=== PATIENT | female | born 1980 | race American Indian/Alaskan Native ===

== ENCOUNTER 2017-06-26 10:51 | Emergency (ER) | payer SELFPAY ==
[2017-06-26 11:36] VITALS: BP 122/71
--- NOTE | 2017-06-26 15:19 | Emergency Department Report ---
Blank Doc - Documentation Documentation: 36-year-old female with no significant past medical history came in complaining of runny nose, cough, congestion for past 5 days. Pt states her mother has COPD and has been coughing and she feels like she got it from her. Pt is under no acute distress. denies n/v/cp/sob, denies fever, chills P: -flu,strep,cxr
--- NOTE | 2017-06-26 15:48 | Emergency Department Report ---
Minor Respiratory - HPI Chief Complaint: Sore Throat Stated Complaint: BODY PAIN Time Seen by Provider: 06/26/17 15:10 Duration: 5 Days Pain Location: Throat, Nose Severity: mild Minor Respiratory: Yes Rhinorrhea, Yes Sore Throat, Yes Able to Tolerate Fluids , Yes Cough, Yes Sick Contacts, Yes Fever, No Ear Pain, No Hemoptysis, No Chest Pain, No Shortness of Breath Other History: Pt reports URI x 5 days with low grade fever. No SOB. ED Review of Systems ROS: Stated complaint: BODY PAIN Other details as noted in HPI Comment: All other systems reviewed and negative Constitutional: chills, fever Eyes: denies: eye pain, eye discharge, vision change ENT: as per HPI, throat pain, congestion. denies: ear pain Respiratory: cough. denies: shortness of breath, wheezing Cardiovascular: denies: chest pain, palpitations Endocrine: no symptoms reported Gastrointestinal: denies: abdominal pain, nausea, diarrhea Genitourinary: denies: urgency, dysuria, discharge Musculoskeletal: denies: back pain, joint swelling, arthralgia Skin: denies: rash, lesions Neurological: denies: headache, weakness, paresthesias Psychiatric: denies: anxiety, depression Hematological/Lymphatic: denies: easy bleeding, easy bruising ED Past Medical Hx - Past Medical History Additional medical history: BRONCHITIS - Surgical History Past Surgical History?: Yes Additional Surgical History: X1 - Social History Smoking Status: Current Every Day Smoker Substance Use Type: Marijuana - Medications Home Medications: Home Medications Medication Instructions Recorded Confirmed Last Taken Type Doxycycline Hyclate [Vibramycin] 100 mg PO BID #20 capsule 06/26/17 Unknown Rx Fluticasone [Flonase] 2 spray NS QDAY #1 bottle 06/26/17 Unknown Rx Minor Respiratory Exam - Exam General: Vital signs noted. No distress. Alert and acting appropriately. HEENT: Yes Moist Mucous Membranes, Yes Rhinorrhea, No Pharyngeal Erythema, No Pharyngeal Exudates, No Conjuctival Injection, No Frontal Tenderness, No Maxillary Tenderness Ear: Neither TM Bulge, Neither TM Erythema, Neither EAC Pain, Neither EAC Discharge Neck: Yes Supple, No Adenopathy Lungs: Yes Good Air Exchange, Yes Cough, No Wheezes, No Ronchi, No Stridor, No Labored Respirations, No Retractions, No Use of Accessory Muscles, No Other Abnormal Lung Sounds Heart: Yes Regular, No Murmur Abdomen: Yes Normal Bowel Sounds, No Tenderness, No Peritoneal Signs Skin: No Rash, No Edema Neurologic: Alert and oriented, no deficits. Musculoskeletal: Unremarkable. ED Course Vital Signs 06/26/17 11:33 Temperature 99.1 F Pulse Rate 66 Respiratory 17 Rate Blood Pressure 122/71 O2 Sat by Pulse 100 Oximetry - Reevaluation(s) Reevaluation #1: 06/26/17 16:35 Pt stable for d/c. ED Medical Decision Making - Radiology Data Radiology results: report reviewed, image reviewed interpreted by me: isaac naf - Medical Decision Making Pt presents with URI sx, CXR clear/strep neg. Will treat for sinusitis - Differential Diagnosis sinusitis, strep, pna, flu unlikely. Critical care attestation.: If time is entered above; I have spent that time in minutes in the direct care of this critically ill patient, excluding procedure time. ED Disposition Clinical Impression: Acute sinusitis Qualifiers: Sinusitis location: unspecified location Recurrence: not specified as recurrent Qualified Code(s): J01.90 - Acute sinusitis, unspecified Disposition: TO HOME OR SELFCARE Is pt being admited?: No Condition: Good Instructions: Sinusitis (ED) Prescriptions: Doxycycline Hyclate [Vibramycin] 100 mg PO BID #20 capsule Fluticasone [Flonase] 2 spray NS QDAY #1 bottle Referrals: JUAN F ALMONTE MD [Primary Care Provider] - 3-5 Days HORTENCIA WAGNER MD [Staff Physician] - 3-5 Days Time of Disposition: 16:46
--- NOTE | 2017-06-26 16:44 | XRay Report ---
FINAL REPORT PROCEDURE: XR CHEST ROUTINE 2V TECHNIQUE: PA and lateral chest radiographs were obtained. CPT 82974 HISTORY: cough COMPARISON: No prior studies are available for comparison. FINDINGS: Heart: Normal. Mediastinum/Vessels: Normal. Lungs/Pleural space: Normal. Bony thorax: No acute osseous abnormality. Other: IMPRESSION: Normal examination.
== END 2017-06-26 19:10 | disposition home or self-care (01) ==
LOC: ED 10:51
DX: J01.90 Acute sinusitis, unspecified (principal); F17.200 Nicotine dependence, unspecified, uncomplicated; F12.10 Cannabis abuse, uncomplicated; Z88.1 Allergy status to other antibiotic agents
CPT/HCPCS: 71046; 87116; 87430; 99283